=== PATIENT | male | born 1960 | race Caucasian/White ===

== ENCOUNTER → 2017-06-12 | Outpatient (CLI) | payer OTHER | LOC: BMCIMAGING 11:15 | PROVIDERS: ATTEND Emergency Medicine | DX: J98.11 Atelectasis (principal) ==

== ENCOUNTER 2017-09-24 20:06 | Observation (INO) | payer OTHER ==
--- NOTE | 2017-09-24 20:12 | EDPHY ---
H & P Time Seen by Provider: 09/24/17 20:12 HPI/ROS: HPI: This is a 57-year-old male who presents with Chief Complaint: Questionable seizure activity Location: body Quality: Grand mal seizure-like activity Duration: Lasting several minutes Signs and Symptoms: no shortness of breath at rest, no shortness of breath on exertion, no cough, no chest pain, no palpitations, no lower extremity edema, no wheezing, no orthopnea, no paroxysmal nocturnal dyspnea, no fever, no injury/ trauma, no hemoptysis, no carpal pedal spasms, no headache, no weakness, no incontinence, no tongue biting Timing: Acute, resolved Severity: Moderate Context: Patient reports that he has a history of type 2 diabetes mellitus controlled with medications, PVCs, seizures as a child self-resolved presents via EMS with witnessed seizure by his while standing at the the kitchen sink. Patient reports that they just finished eating dinner, he was standing at the kitchen sink and began to feel "funny." reports that patient clench both his arms up into his chest and began to shake them vigorously and rhythmically. Patient's reports that patient's eyes were open but he was not responding to her voice and commands. rushed to the patient's side and slowly helped him down to the floor. then reported generalized convulsive movements on the floor then occurred for a few seconds. She immediately called EMS and within 5 min they arrived. Patient at that time was sleepy and fatigued but alert and oriented to self place and time. Patient does not remember what happened. He notes that he had a cardiac workup for PVCs within the last 2-5 years with a negative for ischemia exercise stress test. 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 Patient denies any recent alcohol or drug use. Modifying Factors: None Comment: ROS: see HPI Constitutional: No fever, no chills, no weight loss Eyes: No blurred vision Respiratory: No shortness of breath, no cough Cardiovascular: No chest pain, no palpitations, no lower extremity edema Gastrointestinal: No nausea, no vomiting, no diarrhea Genitourinary: No dysuria Extremities: No myalgias Neurologic: No weakness, no numbness Skin: No rashes Hematologic: No bruising, no bleeding MEDICAL/SURGICAL/SOCIAL HISTORY: Medical history: diabetes type 2 (meds), hyperlipidemia, occasional PVC's, intermittent diarrhea and stomach pain, occ reflux, sz's as a child(resolved) Surgical history: Denies Social history: . Employed as coating machine helper. CONSTITUTIONAL: post-ictal adult white male, wearing glasses, at bedside, awake and alert, no obvious distress HEENT: Atraumatic and normocephalic, PERRL, EOMI. Tympanic membranes clear. Oropharynx clear, no tongue laceration noted, no exudate and moist pink mucosa. Airway patent. No lymphadenopathy. No meningismus. Cardiovascular: Normal S1/S2, regular rate, regular rhythm, without murmur rub or gallop. PULMONARY/CHEST: Symmetrical and nontender. Clear to auscultation bilaterally. Good air movement. No accessory muscle usage. ABDOMEN: Soft, nondistended, nontender, no rebound, no guarding, no peritoneal signs, no masses or organomegaly. No CVAT. EXTREMITIES: 2/2 pulses, strength 5/5, no deformities, no clubbing, no cyanosis or edema. NEUROLOGICAL: no focal neuro deficits. GCS 15. Cranial nerves 2-12 grossly intact. No tongue deviation. SKIN: Warm and dry, no erythema. no rash. Good capillary refill. Source: Patient, Family (), RN/MD, EMS Exam Limitations: No limitations - Medical/Surgical History Hx Asthma: No Hx Chronic Respiratory Disease: No Hx Diabetes: Yes Hx Cardiac Disease: No Hx Renal Disease: No Hx Cirrhosis: No Hx Alcoholism: No Hx HIV/AIDS: No Hx Splenectomy or Spleen Trauma: No Other PMH: diabetes type 2 ( meds),occ. PVC's, intermittend diarrhea and stomac pain, occ reflux, sz's as a child(resolved) - Social History Smoking Status: Never smoked Constitutional: Initial Vital Signs Temperature (C) 37.0 C 09/24/17 20:18 Heart Rate 88 09/24/17 20:18 Respiratory Rate 18 09/24/17 20:18 Blood Pressure 137/85 H 09/24/17 20:18 O2 Sat (%) 97 09/24/17 20:18 O2 Delivery Mode Room Air Allergies/Adverse Reactions: No Known Allergies Allergy (Unverified 03/24/16 21:47) Home Medications: Medication Instructions Recorded Atorvastatin Calcium [Lipitor 10 10 mg PO HS 03/28/16 mg (*)] Cholecalciferol Vit D3 [Vitamin D3 1,000 units PO DAILY 03/28/16 (*)] Cyanocobalamin [Vitamin B12 (*)] 100 mcg PO DAILY 03/28/16 [place]-3 Fatty Acids [Fish Oil 1000 1,000 mg PO BID 03/28/16 mg (*)] Sitagliptin Phos/Metformin HCl 1 tab PO BID 03/28/16 [Janumet 50-1,000 mg Tablet] Canagliflozin [Invokana] 300 mg PO DAILY 09/24/17 Medical Decision Making ED Course/Re-evaluation: EKG, head CT scan, IV fluids, IV medications, labs, urinalysis ordered EKG reviewed with attending shows no signs of acute ischemia/arrhythmia 2020: Given 1 L normal saline, IV Ativan 1 mg 2130: Called by radiologist who advised that head CT scan shows no acute intracranial process. Labs reviewed and grossly unremarkable. ED decision to consult for admission after speaking with attending for concern of new onset seizure versus pseudo-seizure. Spoke with hospitalist, Dr. Keating , who kindly agrees to admit patient and provide further care. This patient was seen under the supervision of my secondary supervising physician. I evaluated care for this patient independently. Discussed this patient with Dr. Badillo who did not see the patient. Differential Diagnosis: Seizure including but not limited to electrolyte abnormality, alcohol withdrawal , medication noncompliance, head injury, and breakthrough seizure. - Data Points Laboratory Results: Laboratory Results 09/24/17 20:00 09/24/17 20:18 09/24/17 09/24/17 09/24/17 20:18 20:00 20:00 WBC 7.19 10^3/uL 10^3/uL (3.80-9.50) RBC 4.88 10^6/uL 10^6/uL (4.40-6.38) Hgb 15.1 g/dL g/dL (13.7-17.5) Hct 43.5 % % (40.0-51.0) MCV 89.1 fL fL (81.5-99.8) MCH 30.9 pg pg (27.9-34.1) MCHC 34.7 g/dL g/dL (32.4-36.7) RDW 12.8 % % (11.5-15.2) Plt Count 237 10^3/uL 10^3/uL (150-400) MPV 10.3 fL fL (8.7-11.7) Neut % (Auto) 61.8 % % (39.3-74.2) Lymph % (Auto) 26.3 % % (15.0-45.0) [place] % (Auto) 9.9 % % (4.5-13.0) Eos % (Auto) 0.8 % % (0.6-7.6) Baso % (Auto) 0.8 % % (0.3-1.7) Nucleat RBC Rel Count 0.0 % % (0.0-0.2) Absolute Neuts (auto) 4.44 10^3/uL 10^3/uL (1.70-6.50) Absolute Lymphs (auto) 1.89 10^3/uL 10^3/uL (1.00-3.00) Absolute Monos (auto) 0.71 10^3/uL 10^3/uL (0.30-0.80) Absolute Eos (auto) 0.06 10^3/uL 10^3/uL (0.03-0.40) Absolute Basos (auto) 0.06 10^3/uL 10^3/uL (0.02-0.10) Absolute Nucleated RBC 0.00 10^3/uL 10^3/uL (0-0.01) Immature Gran % 0.4 % % (0.0-1.1) Immature Gran # 0.03 10^3/uL 10^3/uL (0.00-0.10) PT 13.0 SEC SEC (12.0-15.0) INR 0.96 (0.83-1.16) Sodium 141 mEq/L mEq/L (135-145) Potassium 3.7 mEq/L mEq/L (3.5-5.2) Chloride 103 mEq/L mEq/L (97-110) Carbon Dioxide 21 mEq/l L mEq/l (22-31) Anion Gap 17 mEq/L H mEq/L (8-16) BUN 13 mg/dL mg/dL (7-23) Creatinine 1.0 mg/dL mg/dL (0.7-1.3) Estimated GFR > 60 Glucose 202 mg/dL H mg/dL (70-100) Calcium 9.7 mg/dL mg/dL (8.5-10.4) Magnesium 2.0 mg/dL mg/dL (1.6-2.3) Total Bilirubin 0.5 mg/dL mg/dL (0.1-1.4) Conjugated Bilirubin 0.4 mg/dL mg/dL (0.0-0.5) Unconjugated Bilirubin 0.1 mg/dL mg/dL (0.0-1.1) AST 20 IU/L IU/L (17-59) ALT 26 IU/L IU/L (21-72) Alkaline Phosphatase 61 IU/L IU/L (38-126) Troponin I < 0.012 ng/mL ng/mL (0.000-0.034) Total Protein 7.5 g/dL g/dL (6.3-8.2) Albumin 4.6 g/dL g/dL (3.5-5.0) Medications Given: Discontinued Medications Sodium Chloride (Ns) 1,000 mls @ 0 mls/hr IV ONCE ONE; Wide Open PRN Reason: Protocol Stop: 09/24/17 20:19 Last Admin: 09/24/17 20:30 Dose: 1,000 mls Lorazepam (Ativan Injection) 1 mg IVP EDNOW ONE Stop: 09/24/17 20:19 Last Admin: 09/24/17 20:30 Dose: 1 mg Departure - Departure Disposition: [facility] Acute Clinical Impression: New onset seizure Condition: Fair
[2017-09-24] MEDS ORDERED: NS 1,000 ML IV ONE (20:18)
[2017-09-24] MEDS ORDERED: LORazepam 2 MG/ML INJ IVP ONE (20:18)
--- NOTE | 2017-09-24 20:21 | CPEKG ---
Heart Rate: 94 RR Interval: 638 P-R Interval: 152 QRSD Interval: 102 QT Interval: 360 QTC Interval: 451 P [place]: 59 QRS [place]: -28 T Wave [place]: 47 EKG Severity - OTHERWISE NORMAL ECG - EKG Impression: SINUS RHYTHM EKG Impression: VENTRICULAR PREMATURE COMPLEX EKG Impression: BORDERLINE LEFT AXIS DEVIATION Electronically Signed By: Annette Badlilo 24-Sep-2017 22:11:31
[2017-09-24 20:33] LABS: PLATELET COUNT 237 10^3/uL (150-400)
[2017-09-24 20:42] LABS: INR 0.96 (0.83-1.16)
[2017-09-24] MEDS ORDERED: ACETAMINOPHEN 325 MG TAB PO PRN (21:59)
[2017-09-24] MEDS ORDERED: LORazepam 2 MG/ML INJ IVP PRN (21:59)
[2017-09-24] MEDS ORDERED: ONDANSETRON DISINTEGRATING 4 MG TAB PO PRN (21:59)
[2017-09-24] MEDS ORDERED: ONDANSETRON 4 MG/2 ML VIAL IVP PRN (21:59)
[2017-09-24] MEDS ORDERED: NS 1,000 ML IV SCH (22:00)
[2017-09-24] MEDS ORDERED: D50W 25 GM/50 ML VIAL IVP PRN (22:06)
--- NOTE | 2017-09-24 22:18 | PDGENHP ---
History and Physical - Chief Complaint shaking episode - History of Present Illness 57 yo male with h/o diabetes presents to ED after a shaking episode. He was standing at his kitchen counter when he began to feel himself shaking in his arms. He was aware of this occurring. His was nearby and helped lower him to the ground. He was awake and aware the entire time. EMS was called and he was brought to the ED for presumed seizure. He has no tongue injury and no urinary incontinence. He reportedly had a seizure when he was 5 yrs old, but no other seizure history. He does drink 2-3 drinks of alcohol most nights, but denies a prior h/o withdrawal. No fevers/chills. No headaches. No CP, SOB, cough, abdominal pain, nausea or vomiting. He has had some chronic diarrhea and had a normal colonoscopy last year. He also reports increased stress at work. In the ED, a CT head was negative. He was given 1 mg IV Ativan and 1 L NS. He is sleepy, but able to provide a full history. He is admitted to the hospital for further evaluation. History Information - Allergies/Home Medication List Allergies/Adverse Reactions: No Known Allergies Allergy (Unverified 03/24/16 21:47) Home Medications: Atorvastatin Calcium [Lipitor 10 mg (*)] 10 mg PO HS 03/28/16 [Last Taken ] Cholecalciferol Vit D3 [Vitamin D3 (*)] 1,000 units PO DAILY 03/28/16 [Last Taken 09/24/17] Cyanocobalamin [Vitamin B12 (*)] 100 mcg PO DAILY 03/28/16 [Last Taken 09/24/17] [place]-3 Fatty Acids [Fish Oil 1000 mg (*)] 1,000 mg PO BID 03/28/16 [Last Taken 09/24/17] Sitagliptin Phos/Metformin HCl [Janumet 50-1,000 mg Tablet] 1 tab PO BID [Last Taken 09/24/17] Canagliflozin [Invokana] 300 mg PO DAILY 09/24/17 [Last Taken 09/24/17] I have personally reviewed and updated: family history, medical history, social history, surgical history - Past Medical History diabetes type 2, hyperlipidemia - Surgical History Reports: cholecystectomy - Family History Additional family history: Pt is adopted - Social History Smoking Status: Never smoked Alcohol Use: Other (2-3 drinks most days) Drug Use: None Additional social history: Works for the [employer]. , and mother at bedside. Review of Systems Review of Systems: ROS: 10pt was reviewed & negative except for what was stated in HPI & below Physical Exam Physical Exam: Temp Pulse Resp BP Pulse Ox 37.0 C 88 18 137/85 H 97 09/24/17 20:18 09/24/17 20:18 09/24/17 20:18 09/24/17 20:18 09/24/17 20:18 Constitutional: no apparent distress Eyes: PERRL Ears, Nose, Mouth, Throat: moist mucous membranes Cardiovascular: regular rate and rhythym, no murmur, rub, or gallop Respiratory: no respiratory distress, clear to auscultation Gastrointestinal: normoactive bowel sounds, soft, non-tender abdomen Skin: warm Musculoskeletal: full muscle strength Neurologic: AAOx3, other (no facial asymmetry, pronator drift neg, 5/5 muscle strength b/l UE's and LE's, speech fluent) Psychiatric: interacting appropriately Lab Data & Imaging Review 09/24/17 20:00 09/24/17 20:18 WBC 7.19 10^3/uL (3.80-9.50) 09/24/17 20:00 RBC 4.88 10^6/uL (4.40-6.38) 09/24/17 20:00 Hgb 15.1 g/dL (13.7-17.5) 09/24/17 20:00 Hct 43.5 % (40.0-51.0) 09/24/17 20:00 MCV 89.1 fL (81.5-99.8) 09/24/17 20:00 MCH 30.9 pg (27.9-34.1) 09/24/17 20:00 MCHC 34.7 g/dL (32.4-36.7) 09/24/17 20:00 RDW 12.8 % (11.5-15.2) 09/24/17 20:00 Plt Count 237 10^3/uL (150-400) 09/24/17 20:00 MPV 10.3 fL (8.7-11.7) 09/24/17 20:00 Neut % (Auto) 61.8 % (39.3-74.2) 09/24/17 20:00 Lymph % (Auto) 26.3 % (15.0-45.0) 09/24/17 20:00 [place] % (Auto) 9.9 % (4.5-13.0) 09/24/17 20:00 Eos % (Auto) 0.8 % (0.6-7.6) 09/24/17 20:00 Baso % (Auto) 0.8 % (0.3-1.7) 09/24/17 20:00 Nucleat RBC Rel Count 0.0 % (0.0-0.2) 09/24/17 20:00 Absolute Neuts (auto) 4.44 10^3/uL (1.70-6.50) 09/24/17 20:00 Absolute Lymphs (auto) 1.89 10^3/uL (1.00-3.00) 09/24/17 20:00 Absolute Monos (auto) 0.71 10^3/uL (0.30-0.80) 09/24/17 20:00 Absolute Eos (auto) 0.06 10^3/uL (0.03-0.40) 09/24/17 20:00 Absolute Basos (auto) 0.06 10^3/uL (0.02-0.10) 09/24/17 20:00 Absolute Nucleated RBC 0.00 10^3/uL (0-0.01) 09/24/17 20:00 Immature Gran % 0.4 % (0.0-1.1) 09/24/17 20:00 Immature Gran # 0.03 10^3/uL (0.00-0.10) 09/24/17 20:00 PT 13.0 SEC (12.0-15.0) 09/24/17 20:00 INR 0.96 (0.83-1.16) 09/24/17 20:00 Sodium 141 mEq/L (135-145) 09/24/17 20:18 Potassium 3.7 mEq/L (3.5-5.2) 09/24/17 20:18 Chloride 103 mEq/L (97-110) 09/24/17 20:18 Carbon Dioxide 21 mEq/l (22-31) L 09/24/17 20:18 Anion Gap 17 mEq/L (8-16) H 09/24/17 20:18 BUN 13 mg/dL (7-23) 09/24/17 20:18 Creatinine 1.0 mg/dL (0.7-1.3) 09/24/17 20:18 Estimated GFR > 60 09/24/17 20:18 Glucose 202 mg/dL (70-100) H 09/24/17 20:18 Calcium 9.7 mg/dL (8.5-10.4) 09/24/17 20:18 Magnesium 2.0 mg/dL (1.6-2.3) 09/24/17 20:18 Total Bilirubin 0.5 mg/dL (0.1-1.4) 09/24/17 20:18 Conjugated Bilirubin 0.4 mg/dL (0.0-0.5) 09/24/17 20:18 Unconjugated Bilirubin 0.1 mg/dL (0.0-1.1) 09/24/17 20:18 AST 20 IU/L (17-59) 09/24/17 20:18 ALT 26 IU/L (21-72) 09/24/17 20:18 Alkaline Phosphatase 61 IU/L (38-126) 09/24/17 20:18 Troponin I < 0.012 ng/mL (0.000-0.034) 09/24/17 20:18 Total Protein 7.5 g/dL (6.3-8.2) 09/24/17 20:18 Albumin 4.6 g/dL (3.5-5.0) 09/24/17 20:18 Visualized and Interpreted EKG results: Yes EKG Interpretation: Positive for: normal sinsus rhythm Assessment & Plan Assessment: Shaking episode - I am not convinced this was a seizure as he maintained awareness throughout the event. CT head neg. Lytes ok. CO2 is slightly low. Will observe in hospital with seizure precautions, prn Ativan for seizure activity, but defer anti-epileptics for now. Neurology consult in am. Consider conversion disorder. DM type 2 - cont home meds, SSI Hyperlipidemia - cont statin Full code Dispo - obs
[2017-09-24] MEDS ORDERED: ATORVASTATIN CALCIUM 10 MG TAB PO SCH (23:15)
[2017-09-24] MEDS ORDERED: metFORMIN HCL 500 MG TAB PO SCH (23:15)
[2017-09-25] MEDS ORDERED: ATORVASTATIN CALCIUM 10 MG TAB PO SCH
[2017-09-25] MEDS: METFORMIN HCL PO SCH ×2 (00:03→09:43)
[2017-09-25] MEDS: SITAGLIPTIN PHOS PO SCH ×2 (00:03→09:43)
[2017-09-25 07:45] VITALS: BP 123/79
[2017-09-25] MEDS ORDERED: INSULIN LISPRO 100 UNIT/ML SC SCH (08:00)
[2017-09-25] MEDS ORDERED: Canagliflozin [Invokana] 300 MG PO SCH (09:00)
--- NOTE | 2017-09-25 13:05 | GDS ---
[f rep st] DISCHARGE SUMMARY DISCHARGE DIAGNOSIS: Shaking episode. CONSULTATIONS: Dr. Wheeler of Neurology. STUDIES AND PROCEDURES DONE: CT of the head. PHYSICAL EXAM: GENERAL: The patient is alert. VITAL SIGNS: Afebrile at 36.5, pulse is 90, respira tory rate 16, blood pressure 123/79, saturating 94% on room air. I have seen and evaluated the patient on the day of discharge. HOSPITAL COURSE: The patient is a 57-year-old male who had an episode of shaking associated with anx iety. He was brought to the emergency room for further evaluation, admitted to the hospital. His co ndition has resolved. He has returned to his baseline. He did receive a consultation from Dr. Liam schneider Neurology. Please refer to his note for further recommendations. It is felt that the patient is s afe to be discharged home with his mother. FOLLOWUP: It is recommended he follow up with Dr. Wheeler of Neurology in 2 weeks, as well as establish care with a construction trades contractor and continue to treat his diabetes in the outpatient setting. There are no pending studies. He has been instructed that he is not able to drive for 90 days. He is understandi ng of this, and in agreement with this plan. I discussed the patient's disposition with Dr. Wheeler of N eurology. He is also in agreement with this plan. /[id number]/MODL
--- NOTE | 2017-09-25 13:16 | GCON ---
[f rep st] CONSULTATION NEUROLOGY CONSULTATION. DATE OF CONSULTATION: 09/25/2017 REFERRING PHYSICIAN: Shahnaz Keating MD CHIEF COMPLAINT: Spell of tremoring. HISTORY OF PRESENT ILLNESS: The patient is a 57-year-old gentleman with a history of anxiety in the past and perhaps an anxiety attack without formal diagnosis. He also has diabetes type 2. 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 His mother, who was present today, told me that their farm specialist follow this over time and repeat testing showed that the lesion "resolved" and he was taken off medicine and had no further seizures. No other epilepsy risk factors. The patient is adopted and no family history is known from his biologic parents. The patient had a particularly stressful day at work. 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 He came home, had dinner and was standing at the kitchen sink when his handed him a plate when he suddenly "felt panicked." There was no presyncopal symptoms, shortness of breath, or diaphoresis. He denies palpitations. He states the panic came on suddenly and he remained awake and aware during this time when he suddenly tensed up with his arms flexed and started making a guttural screaming sound while his head extended looking upward. This lasted less than a minute, perhaps a few seconds and then he slowly became drained of all energy and started collapsing to the ground. He did not fall but slowly collapsed to the ground with his 's assistance. There was no tonoclonic activity at this point. No tongue biting or incontinence. His eyes were closed and he was awake and aware while his called EMS and he could hear the EMS people around him but kept his eyes closed. He thinks he was slightly confused because he stated it was August rather than September. Otherwise, he was completely oriented. There was no significant post event confusion. He was brought to the emergency department and had a head CT without contrast which was read as essentially negative. Initial labs showed normal CBC. Initial carbon dioxide was slightly low at 21. Glucose was 202. He remained stable overnight and is wishing to go home now and feels like the event was some sort of a panic attack and feels like "it was more mental than physical." PAST MEDICAL HISTORY, SOCIAL HISTORY, FAMILY HISTORY, HOME MEDICATIONS, ALLERGIES: See Dr. Keating's H and P dated 09/24/2017. PHYSICAL EXAM: VITAL SIGNS: Temperature 37.0, pulse 88, respirations 18, blood pressure 137/85. GENERAL: In no acute distress. Very pleasant. NEUROLOGIC: Cranial nerve exam normal 2 through 7, 11, and 12. Higher mental function awake, alert, no aphasia. Motor exam normal strength, tone and reflexes throughout. Sensory normal to light touch in all 4 extremities. Coordination normal in all 4 extremities. In summary, nonfocal neurologic exam. REVIEW OF SYSTEMS: A 10-point review of systems was done and only pertinent to the HPI. IMPRESSION AND PLAN: 1. Tremor, not otherwise specified. This episode of tremulousness is unclear. He did not have clear-cut features of a panic attack or seizure. Certainly, both are on the differential diagnosis. Specifically, some type of stress related spell is on the differential diagnosis. He had no significant cardiac features to suggest angina, et cetera. No chest pain, shortness of breath, palpitations, et cetera. He did have some ambiguous historical features in giving his account suggesting that he may have some slight alteration of consciousness with this spell. Therefore, I have asked him not to drive for 90 days and to be on seizure precautions for 90 days. He is agreeable. He will discharge home later today. He will follow up with me in the office in 2 weeks. At that time, we will obtain a brain MRI without contrast and 4 hour video EEG. I have also asked that he follow up with Cardiology for baseline cardiac testing as he does have diabetes type 2, and is age 57, for a general check of his vascular status. He is agreeable. Otherwise, we will follow up on all of the above as an outpatient. Certainly, if there are no significant cardiac or neurologic abnormalities, this could be a stress related conversion type spell. We counseled about this at length. He is agreeable and understands the plan. Thank you for this consultation. We will sign off and follow up as needed. Please do not hesitate to call if there are any questions or changes in neurologic status with this very pleasant patient. seventy minutes floor time today reviewing inpatient records, counseling the patient and his family, along with coordination of care. /[id number]/MODL MTDD
== END 2017-09-25 12:28 | disposition home or self-care (01) ==
LOC: EDUNIT# → F3N 22:36
PROVIDERS: ADMIT Hospitalist; ATTEND Hospitalist
DX: R25.8 Other abnormal involuntary movements (principal); F41.9 Anxiety disorder, unspecified; E11.9 Type 2 diabetes mellitus without complications
CPT/HCPCS: 70450; 93005; G0378; 96374; J1642; J2060

== ENCOUNTER → 2017-10-24 | Outpatient (CLI) | payer OTHER | LOC: FIMAGING 18:37 | PROVIDERS: ATTEND Psychiatry & Neurology Neurology | DX: R94.02 Abnormal brain scan (principal) ==

== ENCOUNTER → 2017-10-25 | Outpatient (CLI) | payer OTHER ==
--- NOTE | 2017-10-25 15:43 | CPEEG ---
[f rep st] ELECTROENCEPHALOGRAM DATE OF STUDY: 10/25/2017 INTERPRETATION: This 4-hour video EEG recording is normal. There were no potentially epileptogenic abnormalities present during the awake or sleep recordings. During the video EEG monitoring session, the patient did not have any clinical events. REPORT: This 4-hour video EEG contains 10 Hz alpha activity over the posterior head regions. There was no abnormal activation at rest, during photic stimulation, or hyperventilation. The patient eduin me drowsy and fell into sustained sleep during the study. There was no abnormal activation during dr owsiness, sleep, or during times of arousal. There were no clinical events recorded during the video EEG monitoring session. /[id number]/MODL
== END ==
LOC: FCPNEURO 07:43
PROVIDERS: ATTEND Psychiatry & Neurology Neurology
DX: R46.89 Other symptoms and signs involving appearance and behavior (principal)

== ENCOUNTER 2018-02-18 15:11 | Emergency (ER) | payer OTHER ==
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
[2018-02-18] MEDS ORDERED: LORazepam 1 MG TAB PO ONE (15:52)
[2018-02-18 16:01] VITALS: BP 131/85
== END 2018-02-18 16:33 | disposition home or self-care (01) ==
LOC: EDUNIT#
DX: F41.9 Anxiety disorder, unspecified (principal); V49.00XA Driver injured in collision with unspecified motor vehicles in nontraffic accident, initial encounter